=== PATIENT | male | born 1990 | race Caucasian/White ===

== ENCOUNTER → 2016-05-03 | Outpatient (CLI) | payer BC ==
[~2016-05-03] MED LIST: BISOPROLOL FM5 MG PO; IBUPROFEN800 MG PO; LISINOPRIL10 MG PO; NORCO 325 MG-51 TA1 PO; SKELAXIN 800MG800 MG PO; WELLBUTRIN PO
[2016-05-03 20:00] VITALS: BP 136/84
[2016-05-03 21:45] VITALS: BP 136/84; BP 146/91
[2016-05-03 22:05] VITALS: BP 131/84
--- NOTE | 2016-05-03 23:35 | NUR ---
DR. OLSEN CALLED AND UPDATED ON PATIENTS STATUS, PATIENT IS FEELING BETTER, DENIES PAIN, NAUSEA MUCH IMPROVED, VITALS STABLE, IV FLUIDS COMPLETED, ORDERS GIVEN TO DISCHARGE PATIENT WITH TAKE HOME PACK OF ZOFRAN, WORK RELEASE NOTE FOR TOMORROW, INSTRUCTIONS TO TAKE 1 CAPFULL OF MIRALAX TWICE DAILY FOR THE NEXT SEVERAL DAYS AND IF NOT IMPROVED AND HAVING REGULAR STOOLS BY SATURDAY TO CALL DR[facility] THEN, DISCHARGE INSTRUCTIONS WRITTEN OUT ON PROGRESS NOTE AND REVIEWED WITH PATIENT AND HIS GIRLFRIEND, BOTH VERBALIZE UNDERSTANDING OF ALL INSTRUCTIONS, SENT HOME WITH DOSE PACK OF ZOFRAN ALONG WITH INSTRUCTIONS FOR USE, IVL REMOVED WITHOUT DIFFICULTY, NO ACTIVE BLEEDING NOTED TO INSERTION SITE, PATIENT AMBULATES OUT WITHOUT DIFFICULTY, GAIT STEADY, DISCHARGED AT THIS TIME WITHOUT INCIDENT
== END ==
LOC: RAD 20:15
DX: R11.2 Nausea with vomiting, unspecified (principal); R10.9 Unspecified abdominal pain
CPT/HCPCS: J2405; J7030